=== PATIENT | female | born 1955 | race Two or more races ===

== ENCOUNTER 2022-01-02 23:36 | Emergency (ER) | payer MEDICAID ==
[~2022-01-02] VITALS: Ht 157.5 cm; Wt 65.8 kg
--- NOTE | 2022-01-02 23:45 | NUR ---
BIB SON FOR C/O WORSENING SOB, WEAKNESS AND WEIGHT LOSS X 1 MONTH. SHE IS UNDER THE CARE OF [facility] PHYSICIAN. PATIENT IS AAOX4. COMPLAINING OF STIFFNESS ON THE NECK AREA WELL. PATIENT IS PLACED COMFORTABLY IN BED. ATTACHED TO MONITOR. VITALS CHECKED.
[2022-01-03] MEDS ORDERED: MORPHINE SULFATE INJ 2 MG/ML DISP.SYRIN IV ONE (00:30)
[2022-01-03] MEDS ORDERED: MORPHINE SULFATE INJ 2 MG/ML DISP.SYRIN ONE (00:41)
--- NOTE | 2022-01-03 01:00 | NUR ---
IV CANNULA G20 INSERTED ON LEFT AC. BLOOD DRAWN AND SENT TO LAB
--- NOTE | 2022-01-03 01:13 | NUR ---
PATIENT BROUGHT TO CT DEPT.
--- NOTE | 2022-01-03 01:19 | NUR ---
RETURN FROM CT VIA [facility].
[2022-01-03 01:27] LABS: BASOPHILS # (AUTO) 0.1 K/uL (0.0-0.2); EOSINOPHILS % (AUTO) 4.8 % (0.0-6.0); HEMATOCRIT 39 % (33-45); HEMOGLOBIN 13.1 g/dL (11.5-14.8); LYMPHOCYTES # (AUTO) 4.3 K/uL (0.8-4.8); LYMPHOCYTES % (AUTO) 38.4 % (20.0-44.0); MEAN CORPUSCULAR HGB CONC 34 g/dl (31.0-36.0); MEAN CORPUSCULAR VOLUME 86 fL (82-100); MONOCYTES # (AUTO) 0.8 K/uL (0.1-1.30); NEUTROPHILS # (AUTO) 5.5 K/uL (1.8-8.9); NEUTROPHILS % (AUTO) 48.8 % (43.0-81.0); PLATELET COUNT (AUTO) 301 K/uL (150-450); RED BLOOD CELL COUNT(AUTO) 4.51 MIL/uL (4.0-5.2); WHITE BLOOD COUNT (AUTO) 11.2 K/uL (4.3-11.0)
[2022-01-03 01:39] LABS: CALCIUM, SERUM 9.2 mg/dL (8.5-10.1); CARBON DIOXIDE 27 mmol/L (21-32); CHLORIDE 102 mmol/L (98-107); CREATININE 1.1 mg/dL (0.6-1.3); GLUCOSE 102 mg/dL (74-106); POTASSIUM 4.4 mmol/L (3.5-5.1); SODIUM SERUM 136 mmol/L (136-145); UREA NITROGEN, BLOOD 25 mg/dL (7-18)
[2022-01-03 01:53] LABS: ALANINE AMINOTRANSFERASE 27 U/L (12-78); ALBUMIN 3.6 g/dL (3.4-5.0); ALKALINE PHOSPHATASE 69 U/L (46-116); ASPARTATE AMINOTRANSFERASE 14 U/L (15-37); BILIRUBIN,DIRECT 0.1 mg/dL (0.0-0.2); BILIRUBIN,TOTAL 0.3 mg/dL (0.2-1.0); TOTAL PROTEIN, SERUM 7.7 g/dL (6.4-8.2)
--- NOTE | 2022-01-03 02:13 | NUR ---
ALLOWED PATIENT TO HAVE SOME CRACKERS TO EAT
--- NOTE | 2022-01-03 02:18 | NUR ---
FF UP LAB THAT REPEAT TROP IS AT 3AM.
--- NOTE | 2022-01-03 03:07 | NUR ---
AMBROSIO [facility]UHN - SARAH [phone] PER PT STATES, "AMBROSIO IS ON THEIR WAY". HOWEVER STATED NO ETA
--- NOTE | 2022-01-03 04:10 | NUR ---
IV CANNULA REMOVED
--- NOTE | 2022-01-03 04:10 | NUR ---
Patient discharged to home in stable condition. Written and verbal after care instructions given. Patient verbalizes understanding of instruction.
[2022-01-03 04:11] VITALS: BP 151/66
== END 2022-01-03 04:12 | disposition home or self-care (01) ==
LOC: ER 23:58
DX: R06.09 Other forms of dyspnea (principal); R51.9 Headache, unspecified; I10 Essential (primary) hypertension
CPT/HCPCS: 99285; 96374; 70450; 71045; 93005; 85025; 80048; 80076; 36415; 84484 ×2; 85730; 83880; J2270